=== PATIENT | female | born 1990 | race Caucasian/White ===

== ENCOUNTER 2023-03-13 13:18 | Outpatient (CLI) | payer OTHER ==
[2023-03-13 13:39] LABS: BASOPHILS % (AUTO) 0.2 %; EOSINOPHILS # (AUTO) 0.1 10^3/uL (0.0-0.7); EOSINOPHILS % (AUTO) 0.7 %; HCT - HEMATOCRIT 39.5 % (37.0-47.0); LYMPHOCYTES # (AUTO) 1.4 10^3/uL (1.5-3.5); LYMPHOCYTES % (AUTO) 11.9 %; MEAN CORPUSCULAR HEMOGLOBIN 31.3 pg (27.0-31.0); MEAN CORPUSCULAR HGB CONC 35.4 g/dL (32.0-36.0); MEAN CORPUSCULAR VOLUME 88.4 fL (81.0-99.0); MEAN PLATELET VOLUME 9.9 fL (7.9-10.8); MONOCYTES # (AUTO) 0.7 10^3/uL (0.0-1.0); MONOCYTES % (AUTO) 5.5 %; NEUTROPHILS # (AUTO) 9.8 10^3/uL (1.5-6.6); NEUTROPHILS % (AUTO) 81.5 %; PLT - PLATELET COUNT 202 10^3/uL (130-450); RED BLOOD COUNT 4.47 10^6/uL (4.20-5.40); RED CELL DISTRIBUTION WIDTH 12.9 % (12.0-15.0)
[2023-03-14 03:10] LABS: HIV SCREEN 4TH GENERATION Non Reactive (Non Reactive)
[2023-03-14 04:09] LABS: HCV AB Non Reactive (Non Reactive)
[2023-03-14 05:13] LABS: RPR Non Reactive (Non Reactive)
[2023-03-14 06:08] LABS: HBsAG SCREEN Negative (Negative)
[2023-03-14 10:09] LABS: VARICELLA-ZOSTER AB IGG 623 index (Immune >165)
== END 2023-03-13 13:19 | disposition home or self-care (01) ==
LOC: LAB 13:18
PROVIDERS: ATTEND Nurse Practitioner Obstetrics & Gynecology
DX: Z36.89 Encounter for other specified antenatal screening (principal)
CPT/HCPCS: 36415; 85025; 86592; 86762; 86787; 86803; 86850; 86900; 86901; 87340; 87389

== ENCOUNTER 2023-03-20 15:54 | Outpatient (CLI) | payer OTHER | END 2023-03-20 15:55 | disposition home or self-care (01) | LOC: LAB 15:54 | PROVIDERS: ATTEND Nurse Practitioner Obstetrics & Gynecology | DX: Z01.89 Encounter for other specified special examinations (principal) | CPT/HCPCS: 36415 ==

== ENCOUNTER 2023-04-09 10:00 | Outpatient (CLI) | payer OTHER ==
[2023-04-12 12:09] LABS: AFP MOM 1.02 (.); AFP VALUE 29.6 ng/mL (.); GESTAT. AGE METHOD EDD (.); INSULIN DEP DIABETES No (.); MATERNAL AGE AT EDD 34.4 yr (.); MULTIPLE GESTATION No (.); OPEN SPINA BIFIDA RISK 1 IN 10000 (.); RACE Caucasian (.); RESULTS Report (.); TEST RESULTS *Screen Negative* (.); WEIGHT 161 lbs (.)
== END 2023-04-09 10:01 | disposition home or self-care (01) ==
LOC: LAB 10:00
PROVIDERS: ATTEND Nurse Practitioner Obstetrics & Gynecology
DX: Z13.79 Encounter for other screening for genetic and chromosomal anomalies (principal)
CPT/HCPCS: 36415; 82105

== ENCOUNTER 2023-05-22 20:58 | Outpatient (CLI) | payer OTHER ==
--- NOTE | 2023-05-23 12:16 | Ultrasound Report ---
PROCEDURE: OB Detailed Eval INDICATIONS: SUPERVISION OF OUTSIDE/PRIOR DATING DATA: Last menstrual period (LMP): 12/16/2022. LMP-based estimated date of delivery (MATHEUS): 09/22/2023. First dating scan (date and location): Today, 05/22/2023. Estimated date of delivery (MATHEUS) from first dating scan: 10/01/2023. The below data below was generated using the ultrasound MATHEUS of 10/01/2023 TECHNIQUE: Real-time scanning was performed of the fetus, with image documentation and biometric measurements. Endovaginal scanning: Not performed COMPARISON: None. FINDINGS: General: A single living intrauterine gestation is present. Presentation: Breech Placenta: Placental position is fundal, without previa. Amniotic fluid index: 15.4 cm, within normal limits for gestational age. heart rate: 150 beats per minute. Maternal cervical canal: 3.6 cm long; normal length is 2.5 cm or more. biometrics: Biparietal diameter: 4.9 cm, 21 weeks and 0 days Head circumference: 18.5 cm, 20 weeks and 6 days Abdominal circumference: 16.5 cm, 20 weeks and 4 days Femur length: 3.6 cm, 21 weeks and 4 days Estimated gestational age from initial scan: 21 weeks 1 day Composite gestational age from present scan: 20 weeks 0 days Estimated weight and percentile: 427 g, 63rd percentile Measurement variability in biometric dating: +/- 10 days from 12-20 weeks gestation, +/- 2 weeks from 20-30 weeks gestation, +/- 3 weeks at 30 weeks gestation or later. Anatomic survey: Neuro: Ventricles are normal at less than 10 mm. Cisterna magna is normal at 3-11 mm. Cerebellum i s normal in size and morphology. Nuchal skin fold: Normal at less than 6 mm between 14 and 20 weeks gestational age. Face: Nose and lips, facial profile are normal. Spine: No evidence for spina bifida. Heart: 4-chambered heart is present, with normal ventricular outflow tracts. Diaphragm: Diaphragm is intact. Stomach: Left-sided stomach is present. Kidneys: Mild pelviectasis measuring up to 5 mm. Normal is less than 5 mm in 2nd trimester, less liam n 7 mm in 3rd trimester. Cord: 3 vessel cord has orthotopic insertion. Bladder: Normal in size. Extremities: All 4 extremities are visualized. IMPRESSION: 1.Single live intrauterine at 20 weeks and 0 days. 2.Mild pelviectasis measuring up to 5 mm, recommend short-term follow-up. 3.Nuchal cord is present, can be reassessed on follow-up ultrasound. 4.Otherwise, normal anatomic survey. Reviewed by: Raphael Gautam MD on 05/23/2023 12:14 PM PDT Approved by: Raphael Gautam MD on 05/23/2023 12:14 PM PDT Station ID: [id number]
== END 2023-05-22 20:59 | disposition home or self-care (01) ==
LOC: DI 20:58
PROVIDERS: ATTEND Nurse Practitioner Obstetrics & Gynecology
DX: O99.891 Other specified diseases and conditions complicating pregnancy (principal); N13.30 Unspecified hydronephrosis; Z3A.20 20 weeks gestation of pregnancy; Z36.89 Encounter for other specified antenatal screening

== ENCOUNTER 2023-10-02 04:29 | Inpatient (IN) | payer OTHER ==
[2023-10-02] MEDS ORDERED: METHYLERGONOVINE 0.2 MG/ML VIAL IM PRN (05:37)
[2023-10-02] MEDS ORDERED: hydrALAZINE INJ 20 MG/ML VIAL IVP PRN ×2 (05:37)
[2023-10-02] MEDS ORDERED: OXYTOCIN 10 UNIT/ML VIAL IM PRN (05:37)
[2023-10-02] MEDS ORDERED: miSOPROStoL 200 MCG TABLET BC PRN (05:37)
[2023-10-02] MEDS ORDERED: SODIUM CHLORIDE FLUSH 0.9% 10 ML SYRINGE IVP PRN (05:37)
[2023-10-02] MEDS ORDERED: CARBOPROST TROMETHAMINE 250 MCG/ML AMP IM PRN (05:37)
[2023-10-02] MEDS ORDERED: TERBUTALINE 1 MG/ML VIAL SUBQ PRN (05:37)
[2023-10-02] MEDS ORDERED: miSOPROStoL 200 MCG TABLET PR PRN (05:37)
[2023-10-02] MEDS ORDERED: TRANEXAMIC ACID IN NACL 1,000 MG/100 ML BAG IV PRN (05:37)
[2023-10-02] MEDS ORDERED: OXYTOCIN/SODIUM CHLORIDE 500 ML IV PRN (05:37)
[2023-10-02] MEDS ORDERED: fentaNYL 100 MCG/2 ML VIAL IVP PRN (05:37)
[2023-10-02] MEDS ORDERED: lidocaine 1% 20 ML MDV ID PRN (05:37)
[2023-10-02] MEDS ORDERED: LACTATED RINGERS 1,000 ML IV PRN (05:37)
[2023-10-02] MEDS ORDERED: ONDANSETRON 4 MG/2 ML VIAL IVP PRN ×2 (05:37→10:32)
[2023-10-02] MEDS ORDERED: NIFEdipine 10 MG CAPSULE PO PRN (05:37)
[2023-10-02] MEDS ORDERED: LABETALOL 20 MG/4 ML SYRINGE IVP PRN ×3 (05:37)
[2023-10-02 08:27] LABS: BASOPHILS % (AUTO) 0.2 %; EOSINOPHILS % (AUTO) 0.1 %; HCT - HEMATOCRIT 35.6 % (37.0-47.0); HGB - HEMOGLOBIN 12.3 g/dL (12.0-16.0); LYMPHOCYTES # (AUTO) 1.7 10^3/uL (1.5-3.5); LYMPHOCYTES % (AUTO) 10.8 %; MEAN CORPUSCULAR HEMOGLOBIN 31.4 pg (27.0-31.0); MEAN CORPUSCULAR HGB CONC 34.6 g/dL (32.0-36.0); MEAN CORPUSCULAR VOLUME 90.8 fL (81.0-99.0); MEAN PLATELET VOLUME 10.3 fL (7.9-10.8); MONOCYTES # (AUTO) 0.8 10^3/uL (0.0-1.0); MONOCYTES % (AUTO) 4.7 %; NEUTROPHILS # (AUTO) 13.3 10^3/uL (1.5-6.6); NEUTROPHILS % (AUTO) 83.7 %; PLT - PLATELET COUNT 189 10^3/uL (130-450); RED BLOOD COUNT 3.92 10^6/uL (4.20-5.40); RED CELL DISTRIBUTION WIDTH 13.2 % (12.0-15.0); WHITE BLOOD COUNT 15.9 x10^3/uL (4.8-10.8)
[2023-10-02 08:44] LABS: ALBUMIN 3.6 g/dL (3.2-5.5); ALBUMIN/GLOBULIN RATIO 1.2 (1.0-2.2); BILIRUBIN,TOTAL 0.4 mg/dL (0.2-1.0); CALCIUM 9.2 mg/dL (8.5-10.3); CREATININE 0.6 mg/dL (0.6-1.3); POTASSIUM 4.1 mmol/L (3.5-4.5); TOTAL PROTEIN 6.5 g/dL (6.4-8.9)
[2023-10-02] MEDS: LACTATED RINGERS 1,000 ML IV SCH ×3 (08:48→20:11)
[2023-10-02] MEDS ORDERED: ROPIVACAINE 0.2% 200 MG/100 ML BAG EP ONE (09:10)
[2023-10-02] MEDS ORDERED: LIDOCAINE 2%-EPI 1:100000 20 ML MDV ONE (09:10)
--- NOTE | 2023-10-02 09:28 | HISTORY & PHYSICAL EXAMINATION ---
Admit History - Visit Reason Visit Reason: Contractions - : 1 Parity: 0 Premature: 0 Ectopic: 0 : 0 Care: positive: [facility] Risk/History: positive: None Complications This : positive: None Smoking Status: Never smoker - Mother's Labs Mother's Blood Type: positive: O Mother's RH: positive: Positive GBS: positive: Group B Step Negative Rubella Status: positive: Equivocal - HPI Diagnosis/Indication for NST: Other Vital Signs Temperature 37.8 C 10/02/23 04:45 Heart Rate 105 H 10/02/23 04:45 Respiratory Rate 20 10/02/23 04:45 Blood Pressure 147/83 H 10/02/23 04:45 Temperature 37.8 C 10/02/23 04:45 Heart Rate 105 H 10/02/23 04:45 Respiratory Rate 10/02/23 04:45 Blood Pressure 147/83 H 10/02/23 04:45 O2 Saturation If not protocol: Oxygen Flow, liters/minute - NST Procedure FHR baseline 130s,moderate variability, + accels, no decels Contractions palpate moderate to strong every 2-4 minutes with soft resting tone Meds/Allgy - Allergies Allergies/Adverse Reactions: Allergies Allergy/AdvReac Type Severity Reaction Status Date / Time No Known Drug Allergies Allergy Verified 10/02/23 04:45 Review of Systems - Constitutional Constitutional: denies: Fatigue, Fever, Chills, Malaise - Eyes Eyes: denies: Blurred vision, Spots in vision, Dipolpia - Cardiovascular Cariovascular: denies: Irregular heart rate, Palpitations, Chest pain, Edema - Respiratory Respiratory: denies: Cough, Wheezing, SOB at rest - Gastrointestinal Gastrointestinal: denies: Nausea, Vomiting - Genitourinary Genitourinary: denies: Dysuria - Integumentary Integumentary: denies: Rash, Pruritis - Neurological Neurological: denies: Headache Physical - Abdominal Exam Vital Signs: Temp Pulse Resp BP Pulse Ox O2 Flow Rate 37.8 C 105 H 20 147/83 H 10/02/23 04:45 10/02/23 04:45 10/02/23 04:45 10/02/23 04:45 Contraction Frequency (min/apart): 2-4 Contraction Intensity: positive: Strong Uterine Resting Tone: positive: Soft - Monitoring Heart Rate Baseline: 130 Strip Review: positive: Category I - Presentation Presentation: positive: Vertex - Vaginal Exam Membranes: positive: Membranes intact Plan for Labor - Plan For Labor I expect patient to be DC'd or transferred within 96 hours.: Yes Plan for Labor: HPI: 33yo @ 40.1wks gestation by 9.0wk U/S presents to [facility] with c/o contractions which have increased in frequency and intensity since this morning at 0200. She noted a small amount of pink discharge but otherwise denies vaginal bleeding or leakage of fluid. She reports +FM. Upon arrival she is found to contract every 2-4 minutes with soft resting tone. SVE 4/100/-1 and vertex with intact membranes. She has been a patient of [facility] for the duration of her which has remained uncomplicated with the exception of asymptomatic bacteruria at her first visit however repeat urine cultures remained negative throughout the duration of her . She has received consistent care. She will be admitted to [facility] for expectant management. She is supported by her [place] today. 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 SAB x 0. Last pap 2017 WNL, no hx abnormal. Denies history of gonorrhea, chlamydia, genital herpes, oral herpes or any other STI. Sexual partner does NOT have HSV (oral or genital). Medical Hx: Anxiety Surgical Hx: wisdom teeth removal Social Hx: Monogamous with male partner [place]. Stopped drinking alcohol due to . Denies current use of tobacco, marijuana or other recreational drugs. Reports that she is safe in current relationship. Family Hx: HTN- mother. Denies family history of congenital anomalies, Cystic Fibrosis or chromosomal abnormalities. Allergies: NKDA Medications: PNV course: Initial U/S @ 9.0wks DISconcordant with LMP dating and dates with MATHEUS 10/01/2023 O positive, antibody negative Rubella Equivocal, varicella immune HIV non-reactive, RPR non-reactive Hep B neg, Hep C negative FAS WNL. Fundal placenta, no previa. Size c/w dating. EFW 63%tile. 2 hour Glucola -WNL (82, 103, 81) Tdap 07/10/2023 COVID booster #2 07/31/2023 (has received 4 total vaccinations) Influenza vaccine 08/07/2023 RSV vaccine 07/2023 GBS negative Physical exam: Normocephalic, atraumatic Heart RRR w/o M/G/R Lungs CTAB Abdomen gravid, soft, nontender EFW 3400g FHR baseline 140s, moderate variability, + accels, no decels Contractions palpate moderate to strong every 2-4 minutes with soft resting tone SVE 4/100/-1 and vertex with intact membranes Bilateral LE's no edema Mood is good.
[2023-10-02] MEDS ORDERED: diphenhydrAMINE INJ 50 MG/ML VIAL IVP PRN (10:32)
[2023-10-02] MEDS ORDERED: ROPIVACAINE 0.2% 200 MG/100 ML BAG EP PRN (10:32)
[2023-10-02] MEDS ORDERED: NALBUPHINE 10 MG/ML AMP IVP PRN (10:32)
--- NOTE | 2023-10-02 10:32 | ANESTHESIA ---
Pre-Anesthesia VS, & Labs - Diagnosis LABORING - Procedure LABOR EPIDURAL Vital Signs: Temp Pulse Resp BP Pulse Ox O2 Flow Rate 37.8 C 105 H 20 147/83 H 10/02/23 04:45 10/02/23 04:45 10/02/23 04:45 10/02/23 04:45 Height: 5 ft 7 in Weight (kg): 85.275 kg Body Mass Index: 29.4 BMI Classification: Overweight - Is Patient ?: Yes - Lab Results Current Lab Results: Laboratory Tests 10/02/23 08:10: Sodium 134 L, Potassium 4.1, Chloride 105, Carbon Dioxide 21, Anion Gap 8.0, BUN 9, Creatinine 0.6, Estimated GFR (MDRD) 114, Glucose 86, Calcium 9.2, Total Bilirubin 0.4, AST 15, ALT 12, Alkaline Phosphatase 113, Total Protein 6.5, Albumin 3.6, Globulin 2.9, Albumin/Globulin Ratio 1.2 10/02/23 08:10: WBC 15.9 H, RBC 3.92 L, Hgb 12.3, Hct 35.6 L, MCV 90.8, MCH 31.4 H, MCHC 34.6, RDW 13.2, Plt Count 189, MPV 10.3, Neut # (Auto) 13.3 H, Lymph # (Auto) 1.7, Tillman # (Auto) 0.8, Eos # (Auto) 0.0, Baso # (Auto) 0.0, Absolute Nucleated RBC 0.00, Nucleated RBC % 0.0 10/02/23 08:10: Blood Type O POSITIVE, Antibody Screen NEGATIVE Fish Bones: 10/02/23 08:10 10/02/23 08:10 Home Medications and Allergies Active Medications Carboprost Tromethamine (Carboprost Tromethamine 250 Mcg/Ml Amp) 250 mcg IM .ONCE PRN PRN Reason: Hemorrhage Fentanyl (Fentanyl 100 Mcg/2 Ml Vial) 50 mcg IVP Q1H PRN PRN Reason: Severe Pain (score 7-10) Hydralazine HCl (Hydralazine Inj 20 Mg/Ml Vial) 5 - 10 mg IVP Q20M PRN; Protocol PRN Reason: SBP> or= 160 OR DBP> or= 110 Hydralazine HCl (Hydralazine Inj 20 Mg/Ml Vial) 10 mg IVP .ONCE PRN; Protocol PRN Reason: SBP> or= 160 OR DBP> or= 110 Lactated Ringer's (Lr) 500 mls @ 999 mls/hr IV PRN PRN PRN Reason: intolerance to labor Oxytocin/Sodium Chloride (Pitocin/Sodium Chloride) 500 mls @ 999 mls/hr IV PRN PRN; Protocol PRN Reason: POST- HEMORR PREVENTION Tranexamic Acid (Tranexamic 1,000 Mg/100ml-Nacl) 1,000 mg in 100 mls @ 600 mls/hr IV Q30M PRN PRN Reason: EBL >1200mL and within 3hr Lactated Ringer's (Lr) 1,000 mls @ 125 mls/hr IV .Q8H SEFERINO Last Admin: 10/02/23 08:48 Dose: 125 mls/hr Labetalol HCl (Labetalol 20 Mg/4 Ml Syringe) 20 - 80 mg IVP Q10M PRN; Protocol PRN Reason: SBP> or= 160 OR DBP> or= 110 Labetalol HCl (Labetalol 20 Mg/4 Ml Syringe) 20 mg IVP .ONCE PRN; Protocol PRN Reason: SBP> or= 160 OR DBP> or= 110 Labetalol HCl (Labetalol 20 Mg/4 Ml Syringe) 20 - 40 mg IVP Q10M PRN; Protocol PRN Reason: SBP> or= 160 OR DBP> or= 110 Lidocaine HCl (Lidocaine 1% 20 Ml Mdv) 20 ml ID .ONCE PRN PRN Reason: PERINEAL REPAIR Stop: 10/05/23 05:37 Methylergonovine Maleate (Methylergonovine 0.2 Mg/Ml Vial) 0.2 mg IM .ONCE PRN PRN Reason: Hemorrhage Misoprostol (Misoprostol 200 Mcg Tablet) 600 mcg BC .ONCE PRN PRN Reason: Hemorrhage Misoprostol (Misoprostol 200 Mcg Tablet) 800 mcg PA .ONCE PRN PRN Reason: Hemorrhage Nifedipine (Nifedipine 10 Mg Capsule) 10 - 20 mg PO Q20M PRN; Protocol PRN Reason: SBP> or= 160 OR DBP> or= 110 Ondansetron HCl (Ondansetron 4 Mg/2 Ml Vial) 4 mg IVP PRN PRN PRN Reason: Nausea / Vomiting Oxytocin (Oxytocin 10 Unit/Ml Vial) 10 unit IM .ONCE PRN PRN Reason: Step One if no IV access. Sodium Chloride (Sodium Chloride Flush 0.9% 10 Ml Syringe) 10 ml IVP PRN PRN PRN Reason: NEEDED PER PROVIDER ORDERS Terbutaline Sulfate (Terbutaline 1 Mg/Ml Vial) 0.25 mg SUBQ .ONCE PRN PRN Reason: Tachystole Allergies/Adverse Reactions: Allergies Allergy/AdvReac Type Severity Reaction Status Date / Time No Known Drug Allergies Allergy Verified 10/02/23 04:45 Anes History & Medical History - Anesthetic History Anesthesia Complications: reports: No previous complications Family history of Anesthesia Complications: Denies Family history of Malignant Hyperthermia: Denies - Medical History Cardiovascular: reports: None Pulmonary: reports: None Smoking Status: Never smoker - Obstetrical History : 1 Parity: 0 Events: reports: None Complications: reports: None Exam General: Alert Dental: WNL Mouth Openin Fingerbreadth Neck Mobility: Normal Mallampati classification: II Cardiovascular: Regular rate Mental/Cognitive Status: Alert/Oriented X3 Plan Anesthesia Type: Epidural Consent for Procedure(s) Verified and Reviewed: Yes Code Status: Attempt Resuscitation ASA classification: 1-Healthy patient Is this case an emergency?: No
[2023-10-02] MEDS ORDERED: LIDOCAINE 2%-EPI 1:100000 20 ML MDV TD ONE (10:37)
--- NOTE | 2023-10-02 10:46 | PROVIDER PROGRESS NOTE ---
Labor Progress Note - Uterine Monitoring Uterine Monitoring Mode: positive: External toco Contraction Frequency (min/apart): 2-4 Contraction Intensity: positive: Strong Uterine Resting Tone: positive: Soft - Monitoring Monitor Mode: positive: External ultrasound Heart Rate Baseline: 140 Heart Rate Variability: positive: Moderate (6-25 bmp) Accelerations: positive: Present, 15x15 Decelerations: positive: None Strip Review: positive: Category I - Vaginal Exam Dilation (in cm): 6-7 Effacement (%): 100 Station: -1 Cervical Position: Anterior - Labor Progress Note Labor Progress Note/Additional Text: S: Patient comfortable with epidural. She is still feeling like she has to breathe through the contractions but is feeling much more in control and like the contractions are shorter in duration. Her [place] remains supportive at the bedside. O: FHR baseline 140s, moderate variability, + accels, no decels Contractions palpate strong every 2-4 minutes with soft resting tone SVE 6-7/100/-1 and vertex with intact membranes at last SVE A: 33yo @ 40.1wks gestation by 9.0wk U/S Active labor FHR Category I GBS negative P: Continue expectant management of labor. Continuous monitoring Maintain epidural for pain management. Encouraged position changes in bed on peanut ball q 30 minutes Anticipate .
[2023-10-02] MEDS ORDERED: HYDROCORTISONE 1% CREAM 28 GM TUBE PR PRN (17:16)
[2023-10-02] MEDS ORDERED: WITCH HAZEL/GLYCERIN 1 PAD TOP PRN (17:16)
--- NOTE | 2023-10-02 17:17 | DELIVERY NOTE ---
Delivery Note - Labor Labor: positive: Spontaneous - Delivery Method Delivery Method: positive: Spontaneous vaginal delivery - Presentation Presentation: positive: Vertex, Compound - Nuchal Cord Nuchal Cord: positive: None - Amniotic Fluid Description Amniotic Fluid Description: positive: Clear - Laceration Laceration: positive: 2nd degree, Perineal, Vaginal - Suture Suture Type: positive: Vicryl Suture Size: positive: 2-0, 3-0 - Delivery Outcome Delivery Outcome: positive: Livebirth - : positive: Placed in direct skin contact with mother, Stimulated, [place] used - Cord Cord: positive: 3 vessels - Placenta Placenta: positive: Intact, Spontaneous - Post Delivery Events Post Delivery Events: positive: No post delivery events - Delivery Comments (Free Text/Narrative) Delivery Comments (Free Text/Narrative): Labor: This 33yo @ 40.1wks gestation by 9wk ultrasound presented on 10/02/2023 in active labor. Cervix was 4/100/-1 and vertex with intact membranes. FHR demonstrated a Category I pattern throughout labor. Normal labor course. Epidural placed per maternal request. AROM occurred at 1350 and pt was noted to c/c/0 with onset of active pushing. : Normal SVB of viable female on 10/02/2023 @ 1549. No nuchal cord. Compound right hand. The was placed on maternal abdomen, stimulated, dried, and placed skin to skin. Apgars were 9/10 at 1 and 5 minutes respectively. Pitocin administered via IV for hemostasis. The umbilical cord was allowed to stop pulsating at which time it was doubly clamped and cut by CNM. 3VC. Cord blood was obtained. Fundal massage and gentle cord traction applied for active management of the third stage. Placenta delivered spontaneously and intact at 1557. EBL 300mL. Fourth stage: Uterine fundus firm and there is no excessive bleeding. The perineum, vagina, and cervix were inspected and found to have 2nd degree perineal laceration which was repaired using a 2-0 vicryl and a 3-[address]-1 needles in standard fashion and under sterile conditions. Vaginal and rectal exams were performed following the repair. Tissues well approximated. initiated. Family bonding well. Both mother and baby were left in stable condition.
[2023-10-02] MEDS: IBUPROFEN 800 MG TABLET PO SCH (19:28)
[2023-10-02] MEDS: ACETAMINOPHEN 500 MG TABLET PO SCH (19:28)
[2023-10-02] MEDS ORDERED: oxyCODONE 5 MG TABLET PO ONE (21:56)
[2023-10-03] MEDS: IBUPROFEN 800 MG TABLET PO SCH ×3 (02:51→18:35)
[2023-10-03] MEDS: ACETAMINOPHEN 500 MG TABLET PO SCH ×3 (02:51→23:10)
[2023-10-03] MEDS: DOCUSATE SODIUM 100 MG CAPSULE PO SCH ×2 (06:31→23:10)
--- NOTE | 2023-10-03 09:45 | PROVIDER PROGRESS NOTE ---
Subjective - Subjective Subjective: S: with some difficulty getting baby to latch. She has flat nipples and baby has an uncoordinated suck. She has been able to hand express some colostrum and get her nipple drawn out. She plans to work closely with nursing staff today on . She is now urinating without difficulty and her lochia is normal. She initially required straight catheterization with 700cc urine output at that time. Since that initial difficulty she has not had any pain or hesitancy with urination. She was also struggling with pain management at her tailbone immediately and received 1 dose of 10mg oxycodone which relieved her pain and has since been getting ibuprofen and tylenol which has controlled her pain. Her bleeding is decreased and is light. Her , sister, and parents are supportive at the bedside currently. O: Heart RRR w/o M/G/R, lungs CTAB, abdomen soft and nontender with fundus firm at U, perineum intact, repair with mild edema, light lochia rubra, bilateral LE's trace edema. Mood is good. A: 33yo -->P1 PPD#1 s/p TSVB viable female 2nd degree perineal laceration - intact Normal recovery Rubella equivocal P: Continue routine care and medications. MMR vaccine ordered to be administered prior to discharge. Evaluate for discharge home tomorrow. Objective - Vital Signs/Intake & Output Vital Signs: Vital Signs x48h Temp Pulse Pulse Resp BP Pulse Ox 10/03/23 09:00 36.5 C 81 16 115/47 L 99 10/03/23 06:30 36.6 C 64 16 102/49 L 98 10/03/23 02:36 36.9 C 76 14 115/61 Intake & Output: Intake & Output 09/30/23 10/01/23 10/02/23 10/03/23 23:59 23:59 23:59 23:59 Intake Total 2650 150 Output Total 2150 250 Balance 500 -100 - Lab Results Fish Bones: 10/02/23 08:10 10/02/23 08:10 Other Labs: Lab Results x24hrs 10/02/23 Range/Units 08:10 Blood Type O POSITIVE Antibody Screen NEGATIVE
[2023-10-03] MEDS ORDERED: MEASLES,MUMPS & RUBELLA VACC 0.5 ML VIAL SUBQ ONE (09:54)
[2023-10-04] MEDS: IBUPROFEN 800 MG TABLET PO SCH ×2 (02:00→07:42)
[2023-10-04] MEDS: ACETAMINOPHEN 500 MG TABLET PO SCH (08:15)
[2023-10-04 08:16] VITALS: O2SAT 99
[2023-10-04] MEDS: DOCUSATE SODIUM 100 MG CAPSULE PO SCH (08:16)
[2023-10-04 14:16] VITALS: BP 130/68
[2023-10-04] MEDS ORDERED: MEASLES,MUMPS & RUBELLA VACC 0.5 ML VIAL SUBQ ONE (15:53)
--- NOTE | 2023-10-04 17:17 | Discharge Plan ---
Discharge Plan Problem Reviewed?: Yes Disposition: Home, Self Care Condition: Good Diet: Regular Activity Restrictions: No Restrictions Shower Restrictions: No Driving Restrictions: No Weight Bearing: Full Weight Instruction Topics: Vaginal After, Nutrition , Breastfeed Holds, Breastfeed How To, Breastmilk Storage, Breastmilk Expressing No Smoking: If you smoke, Please STOP! Call for help. Follow-up with: Marii Waller CNM, TESHA [Provider Admit Priv/Credential] - 1 Week
--- NOTE | 2023-10-04 17:24 | DISCHARGE SUMMARY ---
Discharge Summary Condition at Discharge: Good Discharge Disposition: 01 Home, Self Care - HOSPITAL COURSE Hospital Course: Date of Admission: 10/02/2023 Date of Discharge: 10/04/2023 Diagnosis on Admission: 1. 33yo @ 40.1wks gestation by 9.0wk U/S 2. Active labor 3. GBS negative 4. FHR Category I Diagnosis on Discharge: 1. 33yo PPD#2 s/p TSVB viable female 2. 3. Normal recovery 4. Rubella equivocal Brief history: She is a patient of [facility] [place] who presented on 10/02/2023 with c/o contractions. She was found to be 4/100/-1 and vertex with intact membranes. Normal labor course. Epidural was placed per maternal request. She progressed to spontaneously deliver a viable female on 10/02/2023 @ 1549. No nuchal cord. Apgars were 9/10 at 1 and 5 minutes respectively. A second degree perineal laceration was repaired using 2-0 and 3-[address]1 needles in standard fashion and under sterile conditions. EBL 300mL. She has been doing well in her course. She is ambulating and tolerating a regular diet. She is urinating without difficulty and her lochia is normal. Her pain is well controlled with oral medications. She was given an MMR vaccine prior to discharge as she is noted to be Rubella equivocal. She will be discharged home today on day#2 with instructions to continue taking her vitamin while and to continue taking ibuprofen and tylenol over the counter as needed for pain management. She intends to follow up with myself in 1 week for routine visit or sooner if needed. She has been given precautions to call if she has any worsening fevers, chills, abdominal pain, increased vaginal bleeding or foul smelling vaginal lochia. Physical exam: Normocephalic, atraumatic. Heart RRR W/o M/G/R, lungs CTAB, abdomen soft, nontender with U-2. Light lochia rubra, perineum intact, repair with mild edema. Bilateral LE's trace edema. Mood is good. - ALLERGIES Allergies/Adverse Reactions: Allergies Allergy/AdvReac Type Severity Reaction Status Date / Time No Known Drug Allergies Allergy Verified 10/02/23 04:45 - LABS Result Diagrams: 10/02/23 08:10 10/02/23 08:10
--- NOTE | 2023-10-11 08:31 | Labor Flowsheet ---
Labor Flowsheet Datetime Report Generated by CPN: 10/11/2023 08:31 Datetime: 10/03/2023 16:00 UTERINE ACTIVITY Monitor Mode: External Datetime: 10/03/2023 13:19 VITAL SIGNS NBP Sys/Dee/Mean (mmHg): 124 : 70 : 81 Pulse: 80 LaborFlag: Labor Datetime: 10/03/2023 09:00 SpO2 (%): 98 Datetime: 10/02/2023 16:02 Membranes Ruptured Date/Time: 10/02/2023 13:50 Amniotic Fluid Odor: Normal Datetime: 10/02/2023 15:57 Stage 2 Comments: spontaneous delivery of placenta 1557 Datetime: 10/02/2023 14:45 Comments: variables with pushes with return to baseline Datetime: 10/02/2023 14:25 Contraction Comments: pushing well Datetime: 10/02/2023 13:50 VAGINAL EXAM Dilatation (cm): 9.5 (Annotations: provider ok to push thru ant. lip) Membrane Status: Ruptured Membranes Rupture Method: Artificial Amniotic Fluid Color: clear Amniotic Fluid Amount: Large STAGE 2 Pushing: Coached on Pushing Pushing Position: Pushing with Contractions Datetime: 10/02/2023 12:49 Communication Comments: A. Sridhar CNM notified of SVE, will be in soon to see pt. Datetime: 10/02/2023 12:48 Effacement (%): 100 Station: -1 Exam by: tabitha RN Vaginal Bleeding: Normal Show Cervix, Position: Anterior Vaginal Exam Comments: bulgey bag of [place] Datetime: 10/02/2023 12:00 Vital Sign Comments: Pain Goal: 5 Pain Relief Measures: Epidural Given Oxygen Method: Room Air Anesthesia Level Check: T7 Datetime: 10/02/2023 11:30 Frequency (min): 2-3 Quality: Strong Duration (sec): 60-100 Pattern: Normal: <= 5 Contractions in 10 Minutes Resting Tone (Palpate): Relaxed ASSESSMENT A Monitor Mode: Telemetry FHR Baseline Rate : 135 Variability: Moderate 6-25 bpm Accelerations: 15X15 Datetime: 10/02/2023 11:18 Strip Reviewed by: RNs Spear and Maria Victoria-Rotundo COMMUNICATION Communication: Report Given to @ RN Maria Victoria-Rotundo Notification Reason: Status Update; Status; Labor Status; Membrane Status; Uterine Activity; Pain; Maternal Vital Sign Change; Bleeding Datetime: 10/02/2023 11:05 Decelerations: None Actions for Decelerations: Side to Side; IV Bolus; Blood Pressure Category: Category I Datetime: 10/02/2023 11:00 PAIN Pain Scale: 2 Pain Presence: Intermittent Pain Type: Dull; Contraction; Pressure Pain Location: Abdomen Pain Coping: Talking Through Contractions; Breathing Through Contractions Datetime: 10/02/2023 10:55 Patient Care Comments: Repositioned d/t noted late decel Datetime: 10/02/2023 10:40 Respirations: 16 Datetime: 10/02/2023 10:30 FHR Baseline Changes: No Baseline Change Vibroacoustic Stim: Provider Reviewed Strip: Yes Datetime: 10/02/2023 10:16 Pain Assessment Comments: "some relief" in lower abd since bolus but still c/o back pain Datetime: 10/02/2023 10:04 Epidural Procedure: Loading Dose Epidural Procedure Other: Pump Started Datetime: 10/02/2023 09:58 Anesthesia Comments: Back to supine with R hip tilt Datetime: 10/02/2023 09:38 PROCEDURE TIME OUT Procedure Type: 0935 Procedure Verify: Correct Patient Identity; Correct Side and Site are Marked; Accurate Procedure Co nsent Form; Agreement on Procedure to be Done; Correct Patient Position; Safety Precautions Based on Patient History or Medication Use ANESTHESIA Anesthesia Plans: Epidural Epidural Positioning: Sitting Datetime: 10/02/2023 09:29 Provider Notified (Name): [employer] [place] here for epidural Datetime: 10/02/2023 08:52 PATIENT CARE IV/Blood Work: IV Bolus Started; New IV Bag Hung; IV Bag Number @ 1 Datetime: 10/02/2023 08:41 Cervix, Consistency: Soft Datetime: 10/02/2023 08:00 MEDICATIONS Medication Comments: Nitrous begun. Datetime: 10/02/2023 06:08 MATERNAL ASSESSMENT Level of Consciousness: Alert Headache: Denies Breath Sounds, Left: Clear and Equal Breath Sounds, Right: Clear and Equal Nausea/Vomiting: Denies RUQ Epigastric Pain: Denies TEACHING Instructional Method: Verbal; Patient Instructed; Family/Support Person Instructed; Verbalized Unde rstanding Plan of Care: Plan of Care Discussed; Vaginal Delivery; Labor Unit Routine: [place] to Room; [place]; Bed; Visiting Policy; Waiting Areas; Phone/Cell Phone Use; Unit Personnel; Handwashing; Monitoring; Safety/Fall Risk Prevention; Diet/Nutrition Services; Bathroom Privileges; Medications Labor/Induction: Labor Stages Pain Management: Pain Scale/Goals; Comfort Measures Datetime: 10/02/2023 05:30 DTR's/Clonus: DTRs 2+; No Clonus Patient Position/Activity: Walking Comfort Measures: Breathing/Relaxation; Coaching; Family Support I/O Interventions: Clear Liquids Given Datetime: 10/02/2023 05:25 Stage of : Labor (Annotations: Pt admit for labor ) Datetime: 10/02/2023 04:41 Temperature (C): 37.8 Temperature Route: Oral
== END 2023-10-04 16:30 | disposition home or self-care (01) | DRG 807 ==
LOC: WFO 04:29 → FBP 04:31 → WFO 05:24 → FBP 05:25 → WFO 07:29 → FBP 07:29 → UNDOADMIN 07:30 → FBP 07:30 → UNDODISIN 10-04 16:30
PROVIDERS: ADMIT Nurse Practitioner Obstetrics & Gynecology; ATTEND Nurse Practitioner Obstetrics & Gynecology
PROC: 10907ZC Drainage of Amniotic Fluid, Therapeutic from Products of Conception, Via Natural or Artificial Opening (ICD-10-PCS; principal; 2023-10-02)
PROC: 10E0XZZ Delivery of Products of Conception, External Approach (ICD-10-PCS; 2023-10-02)
PROC: 0KQM0ZZ Repair Perineum Muscle, Open Approach (ICD-10-PCS; 2023-10-02)
DX: O70.1 Second degree perineal laceration during delivery (principal); Z37.0 Single live birth; O32.6XX0 Maternal care for compound presentation, not applicable or unspecified; Z3A.40 40 weeks gestation of pregnancy; Z23 Encounter for immunization; O99.893 Other specified diseases and conditions complicating puerperium; R39.198 Other difficulties with micturition
CPT/HCPCS: 59409; 80053; 85025; 86850; 86900; 86901; 99215; A9270; J7120

== ENCOUNTER 2024-06-24 13:29 | Outpatient (CLI) | payer OTHER ==
--- NOTE | 2024-06-25 10:48 | Ultrasound Report ---
LIMITED ULTRASOUND OF LEFT BREAST: 06/24/2024 CLINICAL: Short term follow up for the left breast. Comparison is made to exam dated: 01/21/2024 ultrasound - [facility]. Color flow and real-time ultrasound of the left breast 9 o'clock region were performed. [place] scale i mages of the real-time examination were reviewed. Previously seen fluid collection in the left breast at 9 o'clock anterior depth is no longer seen. N o mass or cyst. IMPRESSION: NEGATIVE There is no sonographic evidence of malignancy. Left breast edema/fluid collection is resolved. No mass or cyst. A 5 year screening mammogram is recommended. Exam findings were conveyed to the patient. This exam was interpreted at Station ID: [id number]. Electronically Signed By: Gibran Copeland M.D. slc/:06/24/2024 14:09:50 ACR BI-RADS Category 1: Negative BI-RADS CATEGORY: (1) - 1 Mammogram [id number] 5 year screening LATERALITY: (B)
== END 2024-06-24 13:30 | disposition home or self-care (01) ==
LOC: DI 13:29
PROVIDERS: ATTEND Physician Assistant
DX: N63.22 Unspecified lump in the left breast, upper inner quadrant (principal)

== ENCOUNTER 2024-06-26 08:20 | Outpatient (CLI) | payer OTHER ==
[2024-06-26 08:32] LABS: BASOPHILS % (AUTO) 0.3 %; EOSINOPHILS # (AUTO) 0.2 10^3/uL (0.0-0.7); EOSINOPHILS % (AUTO) 2.3 %; HCT - HEMATOCRIT 43.7 % (37.0-47.0); HGB - HEMOGLOBIN 14.6 g/dL (12.0-16.0); LYMPHOCYTES # (AUTO) 2.1 10^3/uL (1.5-3.5); LYMPHOCYTES % (AUTO) 31.1 %; MEAN CORPUSCULAR HEMOGLOBIN 29.9 pg (27.0-31.0); MEAN CORPUSCULAR HGB CONC 33.4 g/dL (32.0-36.0); MEAN CORPUSCULAR VOLUME 89.5 fL (81.0-99.0); MONOCYTES # (AUTO) 0.6 10^3/uL (0.0-1.0); MONOCYTES % (AUTO) 8.2 %; PLT - PLATELET COUNT 227 10^3/uL (130-450); RED BLOOD COUNT 4.88 10^6/uL (4.20-5.40); RED CELL DISTRIBUTION WIDTH 12.6 % (12.0-15.0); WHITE BLOOD COUNT 6.8 x10^3/uL (4.8-10.8)
[2024-06-26 08:57] LABS: ALBUMIN 4.6 g/dL (3.2-5.5); ALBUMIN/GLOBULIN RATIO 1.7 (1.0-2.2); ALKALINE PHOSPHATASE 72 IU/L (42-121); ALT ALANINE AMINOTRANSFERASE 10 IU/L (10-60); AST ASPARTATE AMINOTRANSFERASE 13 IU/L (10-42); BILIRUBIN,TOTAL 0.6 mg/dL (0.2-1.0); BUN - BLOOD UREA NITROGEN 20 mg/dL (6-20); CALCIUM 9.5 mg/dL (8.5-10.3); CARBON DIOXIDE - CO2 24 mmol/L (21-32); CHLORIDE 105 mmol/L (101-111); CHOL/HDL RATIO 2.8 (<4.4); CHOLESTEROL 168 mg/dL; CREATININE 0.8 mg/dL (0.6-1.3); GFR - MDRD 82 (>89); GLUCOSE 87 mg/dL (74-104); HDL CHOLESTEROL 59 mg/dL; LDL CHOLESTEROL,CALCULATED 96 mg/dL; LDL/HDL RATIO 1.6 (<4.4); SODIUM 136 mmol/L (135-145); TOTAL PROTEIN 7.3 g/dL (6.4-8.9); TRIGLYCERIDES 65 mg/dL; VLDL CHOLESTEROL 13 mg/dL
[2024-06-26 09:09] LABS: THYROID STIMULATING HORMONE 3.48 uIU/mL (0.34-5.60)
== END 2024-06-26 08:21 | disposition home or self-care (01) ==
LOC: LAB 08:20
PROVIDERS: ATTEND Physician Assistant
DX: Z13.9 Encounter for screening, unspecified (principal)
CPT/HCPCS: 36415; 80053; 80061; 83721; 84443; 85025